=== PATIENT | male | born 2000 | race Two or more races ===

== ENCOUNTER 2025-02-16 13:50 | Emergency (ER) | payer OTHER ==
[~2025-02-16] VITALS: Ht 180.3 cm; Wt 67.1 kg
[2025-02-16] MEDS ORDERED: KETOROLAC TROMETHAMINE 30 MG VIAL IM STA (15:27)
[2025-02-16] MEDS ORDERED: DEXAMETHASONE SODIUM PHOSPHATE 4 MG/ML VIAL IM STA (15:27)
[2025-02-16] MEDS ORDERED: KETOROLAC TROMETHAMINE 30 MG VIAL ONE (15:29)
[2025-02-16] MEDS ORDERED: DEXAMETHASONE SODIUM PHOSPHATE 4 MG/ML VIAL ONE (15:29)
== END 2025-02-16 22:04 | disposition home or self-care (01) ==
LOC: ER 13:50
DX: M79.644 Pain in right finger(s) (principal)